=== PATIENT | female | born 1955 | race Hispanic/Latino ===

== ENCOUNTER 2024-03-08 05:49 | Observation (INO) | payer OTHER ==
[2024-03-06 13:02] VITALS: BP 140/69; PULSE 75; RESP 16
[2024-03-06 13:02] LABS: BASOPHILS # (AUTO) 0.03 K/uL (0.00-0.20); BASOPHILS % (AUTO) 0.5 % (0.0-5.0); EOSINOPHILS % (AUTO) 3.2 % (0.0-8.0); HEMATOCRIT 41.5 % (36-48); IMMATURE GRANULOCYTE ABSOLUTE 0.02 K/uL (0-1); LYMPHOCYTES # (AUTO) 2.1 K/uL (1.0-4.8); LYMPHOCYTES % (AUTO) 33.4 % (21.0-51.0); MEAN CORPUSCULAR HEMOGLOBIN 31.1 pg (27.0-33.0); MEAN CORPUSCULAR HGB CONC 32.8 g/dL (32.0-36.0); MONOCYTES # (AUTO) 0.4 K/uL (0.1-1.0); MONOCYTES % (AUTO) 7.1 % (3.0-13.0); NEUTROPHILS # (AUTO) 3.4 K/uL (1.8-7.7); NEUTROPHILS % (AUTO) 55.5 % (40.0-77.0); PLATELET COUNT (AUTO) 236 K/uL (130-400); RED BLOOD CELL COUNT(AUTO) 4.37 MIL/uL (4.00-5.50); RED CELL DISTRIBUTION WIDTH 12.7 % (11.0-15.5); WHITE BLOOD COUNT (AUTO) 6.2 K/uL (4.8-10.8)
[2024-03-06 13:13] LABS: CREATININE 0.7 mg/dL (0.5-1.0)
[2024-03-08] VITALS (27 sets, daily range): BP systolic 105–135; BP diastolic 45–74; PULSE 65–86; RESP 15–19; O2SAT 97–98
[~2024-03-08] VITALS: Ht 154.9 cm; Wt 79.9 kg
[~2024-03-08 05:49] MED LIST: FAMO40TA7 PO; RABE20TA30 PO
[2024-03-08] MEDS ORDERED: MIDAZOLAM HCL 1 MG/ML 2ML VIAL ONE (06:56)
[2024-03-08] MEDS ORDERED: LIDOCAINE PF 100MG/5ML (2%) SYRINGE 5ML ONE (07:15)
[2024-03-08] MEDS ORDERED: PROPOFOL 10 MG/ML 20ML VIAL IV ONE (07:16)
[2024-03-08] MEDS ORDERED: SUCCINYLCHOLINE CHLORIDE 20 MG/ML 10 ML VIAL ONE (07:16)
[2024-03-08] MEDS: LACTATED RINGERS 1000ML 1,000 ML IV ONE (07:17)
[2024-03-08] MEDS ORDERED: FENTANYL CITRATE PF 50 MCG/1 ML 2ML VIAL ONE (07:17)
[2024-03-08] MEDS: CEFAZOLIN SODIUM 2 GM VIAL ONE (07:17)
[2024-03-08] MEDS ORDERED: ROCURONIUM BROMIDE 10MG/1ML 5ML VL ONE (07:17)
[2024-03-08] MEDS ORDERED: DEXAMETHASONE SOD PHOSPHATE 10MG/ML 1ML VIAL ONE (07:21)
[2024-03-08] MEDS ORDERED: METOCLOPRAMIDE 10 MG/2 ML VIAL ONE (07:21)
[2024-03-08] MEDS ORDERED: ONDANSETRON 4MG INJ ONE (07:22)
[2024-03-08] MEDS ORDERED: BUPIVACAINE/PF 0.5% 30ML VIAL ONE (07:22)
[2024-03-08] MEDS: CEFAZOLIN SODIUM 2 GM VIAL IVPB ONE (08:06)
[2024-03-08] MEDS ORDERED: EPHEDRINE SULFATE 50 MG/ML AMPULE ONE (08:08)
[2024-03-08] MEDS ORDERED: ALBUMIN (HUMAN) 5% 250 ML IV ONE (08:18)
[2024-03-08] MEDS ORDERED: PHENYLEPHRINE HCL 10 MG/ML 1ML VIAL IV ONE (08:18)
[2024-03-08] MEDS ORDERED: MORPHINE 2 MG SYG ONE (09:27)
[2024-03-08] MEDS ORDERED: GLYCOPYRROLATE 0.2 MG/ML 5 ML VIAL ONE (09:35)
[2024-03-08] MEDS ORDERED: NEOSTIGMINE METHYLSULFATE 1MG/ML IV ONE (09:35)
[2024-03-08] MEDS ORDERED: ROPIVACAINE 0.5% 5MG/ML 30ML ONE (09:37)
[2024-03-08] MEDS: LACTATED RINGERS 1000ML 1,000 ML IV SCH (10:00)
[2024-03-08] MEDS ORDERED: ONDANSETRON 4MG INJ IVP PRN (10:00)
[2024-03-08] MEDS ORDERED: PROCHLORPERAZINE 10MG/2ML INJ IV PRN (10:00)
[2024-03-08] MEDS: HYDROMORPHONE 1 MG INJ IVP PRN (11:32)
[2024-03-08] MEDS: ENOXAPARIN SODIUM 30 MG/0.3 ML SQ SCH (13:00)
[2024-03-08] MEDS: KETOROLAC 15MG/ML VIAL (15MG/ML) IV PRN (14:22)
[2024-03-08] MEDS: FAMOTIDINE 20MG VIAL IV SCH (21:28)
[2024-03-09 04:00] VITALS: BP 190/48; PULSE 71; RESP 18
[2024-03-09 06:34] VITALS: PULSE 77; RESP 18; O2SAT 95
[2024-03-09 08:00] VITALS: BP 101/52; PULSE 67; RESP 16; O2SAT 94
[2024-03-09 12:00] VITALS: BP 118/47; PULSE 69; RESP 16
[2024-03-09] MEDS ORDERED: HYDROMORPHONE 0.5 MG SYG (0.5MG/0.5ML) IVP PRN (12:30)
[2024-03-09] MEDS: LACTULOSE 20 GM/30 ML UDCUP PO ONE (13:08)
[2024-03-09] MEDS: HYDROCODONE/ACETAMINOPHEN 7.5/325 MG 15 ML UDCUP PO PRN (13:12)
[2024-03-09 16:00] VITALS: BP 121/61; PULSE 64; RESP 16
== END 2024-03-09 17:35 | disposition home or self-care (01) ==
LOC: DAH 05:49 → INTOOBSV 05:50 → DAHIP 05:50 → DAH 05:50 → 3BH 11:00
PROVIDERS: ADMIT Surgery; ATTEND Surgery
DX: K44.9 Diaphragmatic hernia without obstruction or gangrene (principal); K21.00 Gastro-esophageal reflux disease with esophagitis, without bleeding; I82.4Z9 Acute embolism and thrombosis of unspecified deep veins of unspecified distal lower extremity; E11.9 Type 2 diabetes mellitus without complications; E55.9 Vitamin D deficiency, unspecified; Z98.84 Bariatric surgery status; Z79.899 Other long term (current) drug therapy; Z90.710 Acquired absence of both cervix and uterus; Z90.49 Acquired absence of other specified parts of digestive tract
CPT/HCPCS: 80048; 85025; 86850; 86900; 86901; 36415; 93005; 43282; 96374; 96376 ×2; 96372 ×2; 96375; 97161; 97116; A6260; A4663; A4215 ×2; P9045; J7120; J3490 ×5; J3010; J1170 ×2; J1100; J0330; J2270; J2001; J1650 ×2; J2250; J2704; J2405; J2710; J0665 ×2; J2765; J2795; J1885; J2371; J0690 ×2; G0168; C1781; A4930 ×2; A4223; A4213; A4222; A4221; A4600; G0378 ×7; 43235; G8980-CI; G8983-CI